=== PATIENT | female | born 1940 | race Caucasian/White ===

== ENCOUNTER 2017-09-09 14:00 | Observation (INO) ==
[2017-09-09] MEDS ORDERED: DILTIAZEM 50 MG/10 ML VIAL IV STA (14:34)
[2017-09-09] MEDS ORDERED: MAGNESIUM SULF RIDER 2 GM in PREMIX 1 EACH IV STA (14:34)
[2017-09-09 14:50] LABS: Basophils % 0.5 % (0.0-0.8); Eosinophils % 0.5 % (0.00-10.9); Hemoglobin 14.5 GM/DL (12.0-16.0); Immature Granulocytes % 0.4 %; Immature Granulocytes Absolute 0.03 #; Lymphocytes # 1.9 10*3/uL (1.4-4.0); Lymphocytes % 23.3 % (21.3-54.2); Mean Corpuscular HGB Conc 33.7 GM/DL (32-36); Mean Corpuscular Hemoglobin 31 PG (27-34); Mean Corpuscular Volume 90.9 FL (87-102); Mean Platelet Volume 9.2 FL (9.6-12.0); Monocytes # 0.5 10*3/uL (0.11-0.8); Monocytes % 6.1 % (1.7-12.7); Neutrophils # 5.7 10*3/uL (1.4-7.4); Neutrophils % 69.2 % (38.7-73.9); Platelet Count 236 T/CUMM (130-400); Red Blood Count 4.73 MC/CUMM (3.8-5.5); Red Cell Distribution Width 14.6 % (9.3-17.3); White Blood Count 8.2 T/CUMM (4-12)
[2017-09-09] MEDS ORDERED: DILTIAZEM 100 MG VIAL.ADD IV ONE (14:54)
[2017-09-09] MEDS ORDERED: SODIUM CHLORIDE 0.9% 100 ML IV ONE (14:54)
[2017-09-09 15:00] LABS: PT Patient Result 10.1 SECS; Partial Thromboplastin Time 26.8 SECS (0-40)
[2017-09-09] MEDS ORDERED: DILTIAZEM INJ 100 MG in SODIUM CHLORIDE 0.9% 100 ML IV SCH (15:00)
[2017-09-09 15:33] LABS: Alanine Aminotransferase 15 U/L (13-56); Albumin 3.7 G/DL (3.4-5.0); Alkaline Phosphatase 99 U/L (45-117); Aspartate Amino Transferase 19 U/L (0-37); Bilirubin,Total < 0.39 MG/DL (0.2-1.0); Blood Urea Nitrogen 23 MG/DL (7-18); Calcium 9.1 MG/DL (8.5-10.1); Glucose 155 MG/DL (74-106); Osmolality,Calculated 281.7 MOS/KG (273-304); Potassium 3.9 MMOL/L (3.5-5.1); Sodium 138 MMOL/L (136-145); Thyroid Stimulating Hormone 0.842 uIU/ml (0.358-3.74); Total Protein 7.1 G/DL (6.4-8.3); Troponin I Only < 0.015 NG/ML (0.00-0.045)
[2017-09-09 15:38] LABS: Barbiturates Screen,Urine Negative (Negative); Benzodiazepines Screen,Urine Negative (Negative); Cannabinoid Screen,Urine Negative (Negative); Opiate Screen,Urine Negative (Negative); Phencyclidine Screen,Urine Negative (Negative)
[2017-09-09] MEDS ORDERED: MAGNESIUM SULF RIDER 50 ML IV ONE (15:38)
[2017-09-09] MEDS ORDERED: POTASSIUM CHLORIDE 20 MEQ TABLET PO PRN (16:17)
[2017-09-09] MEDS ORDERED: MAGNESIUM SULF RIDER 2 GM in PREMIX 1 EACH IV PRN (16:17)
[2017-09-09] MEDS ORDERED: MAGNESIUM SULF RIDER 4 GM in PREMIX 1 EACH IV PRN (16:17)
[2017-09-09] MEDS ORDERED: ONDANSETRON 4 MG/2 ML VIAL IV PRN (16:17)
[2017-09-09] MEDS ORDERED: ZALEPLON 5 MG CAPSULE PO PRN (16:17)
[2017-09-09] MEDS ORDERED: guaiFENesin/DM ER 600-30 MG TABLET PO PRN (16:17)
[2017-09-09] MEDS ORDERED: ACETAMINOPHEN 325 MG TABLET PO PRN (16:17)
[2017-09-09] MEDS ORDERED: BISACODYL 5 MG TABLET PO PRN (16:17)
[2017-09-09] MEDS ORDERED: ATORVASTATIN 40 MG TABLET PO STA (16:24)
[2017-09-09] MEDS ORDERED: SODIUM CHLORIDE 0.9% 1,000 ML IV SCH (16:30)
[2017-09-09] MEDS ORDERED: ENOXAPARIN 60 MG/0.6 ML SYRINGE ONE (16:58)
[2017-09-09] MEDS: ENOXAPARIN 60 MG/0.6 ML SYRINGE SUBCUT SCH (17:04)
[2017-09-09 17:38] LABS: Apearance,Urine Slightly Hazy (Clear); Bacteria,Urine Occasional /HPF (Few); Bilirubin,Urine Negative (Negative); Blood, Urine Negative (Negative); Glucose,Urine (UA) Negative (Negative); Hyaline Casts,Urine 3 /LPF (0-3); Ketones,Urine Negative (Negative); Mucus,Urine Occasional /LPF (Occasional); Nitrite,Urine Negative (Negative); Protein,Urine 30 MG/DL; RBC,Urine 7 /HPF (0-4); Squamous Epithelial Cell,Urine Occasional /HPF (0-10); Urine Color Yellow (Yellow); Urine Specific Gravity 1.021 (1.001-1.035); Urine Urobilinogen < 2.0 EU/DL (0.2-1.0); WBC,Urine 99 /HPF (0-6)
[2017-09-09] MEDS ORDERED: ALBUTEROL 2.5 MG/3 ML NEB RESP TX PRN (20:15)
[2017-09-09] MEDS ORDERED: PREMARIN 0.625 MG PO SCH (21:00)
[2017-09-09] MEDS: DILTIAZEM 60 MG TABLET PO SCH ×2 (21:45→21:47)
[2017-09-09] MEDS: ASPIRIN EC 81 MG TABLET PO SCH (21:48)
[2017-09-09] MEDS: ATORVASTATIN 10 MG TABLET PO SCH (21:48)
[2017-09-09 23:09] LABS: Troponin I Only 0.145 NG/ML (0.00-0.045)
[2017-09-10 04:47] LABS: Basophils # 0.1 10*3/uL (0.0-0.2); Basophils % 0.8 % (0.0-0.8); Eosinophils # 0.1 10*3/uL (0.0-0.87); Eosinophils % 1.5 % (0.00-10.9); Hematocrit 36.2 VOL% (35.7-47.0); Hemoglobin 12.4 GM/DL (12.0-16.0); Immature Granulocytes % 0.6 %; Immature Granulocytes Absolute 0.04 #; Lymphocytes % 30.2 % (21.3-54.2); Mean Corpuscular HGB Conc 34.3 GM/DL (32-36); Mean Corpuscular Hemoglobin 31 PG (27-34); Mean Corpuscular Volume 89.2 FL (87-102); Mean Platelet Volume 9.6 FL (9.6-12.0); Monocytes # 0.5 10*3/uL (0.11-0.8); Monocytes % 7.8 % (1.7-12.7); Neutrophils # 3.9 10*3/uL (1.4-7.4); Neutrophils % 59.1 % (38.7-73.9); Platelet Count 213 T/CUMM (130-400); Red Blood Count 4.06 MC/CUMM (3.8-5.5); Red Cell Distribution Width 14.7 % (9.3-17.3); White Blood Count 6.6 T/CUMM (4-12)
[2017-09-10 05:20] LABS: Calcium 7.9 MG/DL (8.5-10.1); Osmolality,Calculated 283.1 MOS/KG (273-304); Potassium 4.2 MMOL/L (3.5-5.1); Risk Ratio 2.86
[2017-09-10] MEDS: LEVOTHYROXINE 75 MCG TABLET PO SCH (06:04)
[2017-09-10] MEDS: ENOXAPARIN 60 MG/0.6 ML SYRINGE SUBCUT SCH (06:04)
[2017-09-10] MEDS ORDERED: LEVOTHYROXINE 75 MCG TABLET PO SCH (06:30)
[2017-09-10] MEDS: DILTIAZEM 60 MG TABLET PO SCH ×2 (09:12→20:57)
[2017-09-10] MEDS: MULTIVITAMIN (CENTRUM) TABLET PO SCH (09:12)
[2017-09-10] MEDS: ASCORBIC ACID 500 MG TABLET PO SCH ×2 (09:12→20:58)
[2017-09-10] MEDS: MULTIVITAMIN (OCUVITE) TABLET PO SCH (09:12)
[2017-09-10] MEDS: PANTOPRAZOLE 40 MG TABLET PO SCH (09:12)
[2017-09-10] MEDS ORDERED: methylPREDNISolone SOD SUC 40 MG/1 ML VIAL IV ONE (11:43)
[2017-09-10] MEDS ORDERED: diphenhydrAMINE CAP 25 MG CAPSULE PO ONE (11:44)
[2017-09-10] MEDS ORDERED: POTASSIUM CHLORIDE RIDER 10 MEQ in PREMIX 1 EACH IV PRN (11:44)
[2017-09-10] MEDS ORDERED: MAGNESIUM SULF RIDER 2 GM in PREMIX 1 EACH IV PRN (11:44)
[2017-09-10] MEDS ORDERED: DIAZEPAM 5 MG TABLET PO ONE (11:44)
[2017-09-10] MEDS ORDERED: SODIUM CHLORIDE 0.45% 1,000 ML IV SCH (12:00)
[2017-09-10] MEDS: FAMOTIDINE 20 MG/2 ML VIAL IV SCH (12:05)
[2017-09-10] MEDS ORDERED: MIDAZOLAM 2 MG/2 ML VIAL ONE (12:21)
[2017-09-10] MEDS ORDERED: HEPARIN/NACL 0.9% 2 UNITS/ML 1,000 ML IV ONE (12:21)
[2017-09-10] MEDS ORDERED: VERAPAMIL 5 MG/2 ML VIAL ONE (12:21)
[2017-09-10] MEDS ORDERED: fentaNYL 100 MCG/2 ML VIAL ONE (12:21)
[2017-09-10] MEDS ORDERED: LIDOCAINE 1% 20 ML VIAL ONE (12:21)
[2017-09-10] MEDS ORDERED: NITROGLYCERIN DRIP 50 MG/250 ML BOTTLE IV ONE (12:21)
[2017-09-10] MEDS ORDERED: ENOXAPARIN 60 MG/0.6 ML SYRINGE ONE (12:38)
[2017-09-10] MEDS ORDERED: TRIAMTERENE/HCTZ 37.5-25 MG CAPSULE PO PRN (16:00)
[2017-09-10] MEDS: APIXABAN 5 MG TABLET PO SCH (20:57)
[2017-09-10] MEDS: ASPIRIN EC 81 MG TABLET PO SCH (20:58)
[2017-09-10] MEDS: ATORVASTATIN 10 MG TABLET PO SCH (20:58)
[2017-09-11] MEDS: FAMOTIDINE 20 MG/2 ML VIAL IV SCH (00:08)
[2017-09-11 06:17] LABS: Basophils % 0.2 % (0.0-0.8); Hematocrit 40.3 VOL% (35.7-47.0); Hemoglobin 13.2 GM/DL (12.0-16.0); Immature Granulocytes % 0.2 %; Immature Granulocytes Absolute 0.01 #; Lymphocytes # 0.8 10*3/uL (1.4-4.0); Lymphocytes % 15.6 % (21.3-54.2); Mean Corpuscular HGB Conc 32.8 GM/DL (32-36); Mean Corpuscular Hemoglobin 30 PG (27-34); Mean Corpuscular Volume 91.6 FL (87-102); Monocytes # 0.2 10*3/uL (0.11-0.8); Monocytes % 3.4 % (1.7-12.7); Neutrophils # 4.2 10*3/uL (1.4-7.4); Neutrophils % 80.6 % (38.7-73.9); Platelet Count 207 T/CUMM (130-400); Red Cell Distribution Width 14.6 % (9.3-17.3); White Blood Count 5.3 T/CUMM (4-12)
[2017-09-11] MEDS: LEVOTHYROXINE 75 MCG TABLET PO SCH (06:28)
[2017-09-11 06:46] LABS: Calcium 8.5 MG/DL (8.5-10.1); Osmolality,Calculated 283.3 MOS/KG (273-304); Potassium 4.1 MMOL/L (3.5-5.1)
[2017-09-11 08:00] VITALS: BP 148/64
[2017-09-11] MEDS: MULTIVITAMIN (CENTRUM) TABLET PO SCH (08:13)
[2017-09-11] MEDS: PANTOPRAZOLE 40 MG TABLET PO SCH (08:14)
[2017-09-11] MEDS: MULTIVITAMIN (OCUVITE) TABLET PO SCH (08:14)
[2017-09-11] MEDS: APIXABAN 5 MG TABLET PO SCH (08:14)
[2017-09-11] MEDS: ASCORBIC ACID 500 MG TABLET PO SCH (08:15)
[2017-09-11] MEDS ORDERED: DILTIAZEM CD 120 MG CAPSULE PO SCH (09:00)
== END 2017-09-11 11:19 | disposition home or self-care (01) ==
LOC: N.ED 14:00 → N.EDINP 14:00 → N.TELES 17:41
PROVIDERS: ADMIT Internal Medicine Cardiovascular Disease; ATTEND Internal Medicine Cardiovascular Disease
PROC: CLCCHCL (ICD-10-PCS; 2017-09-10 12:15)